=== PATIENT | male | born 1965 | race Caucasian/White ===

== ENCOUNTER 2019-05-23 17:29 | Observation (INO) | payer OTHER, SELFPAY ==
[2019-05-23 17:40] VITALS: BP 108/84; PULSE 80; RESP 14; TEMP 36.7
--- NOTE | 2019-05-23 19:40 | ED.ABDPAIN ---
HPI - Abdominal Pain <Galo Moreno DO - Last Filed: 05/23/19 22:47> General Chief Complaint: Abdominal Pain Stated Complaint: concerned about appendicitis Time Seen by Provider: 05/23/19 18:06 Source: patient Mode of arrival: Ambulatory Limitations: no limitations History of Present Illness HPI narrative: Patient is a 53-year-old male. Has been having right lower quadrant abdominal pain for the past 4-5 days. He has had similar pain off and on for the past several months. He states the pain does radiate down to the his right groin. He does feel bloated with constipation. Did take a stool softener last night. Had a bowel movement earlier this morning without any change. Went to see his primary doctor this morning. Had labs performed which shows no acute pathology. Had a ultrasound of his ab which showed probable chronic superimposed on acute appendicitis. They did recommend a CT scan. CT scan was performed which showed a enlarged appendix consistent with chronic possibly superimposed on mild acute appendicitis. There is no fluid. No fluid collection or abscess. Patient was sent to the emergency department. Related Data Allergies Allergy/AdvReac Type Severity Reaction Status Date / Time No Known Drug Allergies Allergy Verified 05/23/19 18:04 Review of Systems <DO Kavita Garrett Last Filed: 05/23/19 22:47> Constitutional Constitutional: Denies fever(s) Cardiovascular Cardiovascular: Denies chest pain and Denies dyspnea Respiratory Respiratory: Denies dyspnea Gastrointestinal Gastrointestinal: Reports abdominal pain, Reports constipation, Reports nausea and Denies vomiting Genitourinary Genitourinary: Denies dysuria Musculoskeletal Musculoskeletal: Denies myalgias and Denies arthralgias Integumentary/Breasts Skin/Breast: Denies rash Hematologic/Lymphatic Hematologic/Lymphatic: Denies easy bleeding and Denies easy bruising Patient History <DO Kavita Garrett Last Filed: 05/23/19 22:47> Medical History Healthy adult (Acute) Social History household members: spouse Smoking Status: Never smoker alcohol intake: current Smoking Status: Never smoker alcohol intake frequency: holidays/special occasions only Substance Use Type: does not use Exam <DO Kavita Garrett Last Filed: 05/23/19 22:47> Initial Vital Signs Initial Vital Signs: Vital Signs Temperature 98.0 F 05/23/19 17:40 Pulse Rate 80 05/23/19 17:40 Respiratory Rate 14 05/23/19 17:40 Blood Pressure 108/84 05/23/19 17:40 Const General: cooperative and comfortable Limitations: mental status not altered Resp Effort & Inspection: normal respiratory effort Auscultation: clear to auscultation bilaterally Cardio Rate: regular rate Rhythm: regular rhythm GI Inspection: non-distended Palpation: soft, No firm and tender (Right lower quadrant) Back/Spine/Pelvis Back: No CVA tenderness Skin Lesions: no lesions Rashes: no rashes Neuro General: alert and awake Cognition: normal cognition Speech: speech normal Extrem General: normal to inspection and capillary refill normal <Devon An MD - Last Filed: 05/23/19 20:16> Initial Vital Signs Initial Vital Signs: Vital Signs Temperature 98.0 F 05/23/19 17:40 Pulse Rate 80 05/23/19 17:40 Respiratory Rate 14 05/23/19 17:40 Blood Pressure 108/84 05/23/19 17:40 Scores <Galo Moreno DO - Last Filed: 05/23/19 22:47> GCS Dinesh coma scale eye opening: Spontaneous Dinesh coma scale verbal response: Orientated Dinesh coma scale motor response: Obey commands Dinesh coma scale total score: 15 Course <Galo Moreno DO - Last Filed: 05/23/19 22:47> Orders Ordered: Acetaminophen (Tylenol) 650 mg PO Q6HR [facility] Enoxaparin Sodium (Lovenox) 40 mg SUBCUT DAILY [facility] Sodium Chloride (Normal Saline 0.9%) 1,000 mls @ 125 mls/hr IV CONT KELLY Last Infusion: 05/23/19 21:10 Dose: 125 mls/hr Documented by: Admin: 05/23/19 20:12 Dose: 125 mls/hr Documented by: BRYON Lactated Ringer's (Lactated Ringers) 1,000 mls @ 100 mls/hr IV CONT KELLY Last Admin: 05/23/19 22:14 Dose: 100 mls/hr Documented by: KRISTA Piperacillin/Tazobactam/Dextrose (Zosyn) 3.375 gm in 50 mls @ 100 mls/hr IV Q8H KELLY Naloxone HCl (Narcan) 0.2 mg IV Q2MIN PRN PRN Reason: Opiate Reversal Ondansetron HCl (Zofran) 4 mg IV Q8HR PRN PRN Reason: Nausea And Vomiting Oxycodone HCl (Percolone) 5 mg PO Q6HR PRN PRN Reason: Pain, Moderate (4-6) Discontinued Medications Sodium Chloride (Normal Saline 0.9%) 1,000 mls @ 150 mls/hr IV CONT [facility] Last Admin: 05/23/19 21:28 Dose: Not Given Documented by: KRISTA Piperacillin/Tazobactam/Dextrose (Zosyn) 3.375 gm in 50 mls @ 100 mls/hr IV NOW ONE Stop: 05/23/19 20:09 Last Infusion: 05/23/19 21:10 Dose: 0 mls/hr Documented by: Admin: 05/23/19 20:12 Dose: 100 mls/hr Documented by: BRYON Influenza Virus Vaccine (Flu Vaccine) 0.5 ml IM .ONCE ONE Stop: 05/23/19 21:17 Last Admin: 05/23/19 22:18 Dose: 0.5 ml Documented by: KRISTA Vital Signs Vital signs: Vital Signs - 8 hr 05/23/19 17:40 Temperature 98.0 F Pulse Rate [Left] 80 Respiratory Rate 14 Blood Pressure [Left Arm] 108/84 <Devon An MD - Last Filed: 05/23/19 20:16> Orders Ordered: Acetaminophen (Tylenol) 650 mg PO Q6HR [facility] Enoxaparin Sodium (Lovenox) 40 mg SUBCUT DAILY [facility] Sodium Chloride (Normal Saline 0.9%) 1,000 mls @ 125 mls/hr IV CONT KELLY Last Infusion: 05/23/19 21:10 Dose: 125 mls/hr Documented by: Admin: 05/23/19 20:12 Dose: 125 mls/hr Documented by: BRYON Lactated Ringer's (Lactated Ringers) 1,000 mls @ 100 mls/hr IV CONT KELLY Last Admin: 05/23/19 22:14 Dose: 100 mls/hr Documented by: KRISTA Piperacillin/Tazobactam/Dextrose (Zosyn) 3.375 gm in 50 mls @ 100 mls/hr IV Q8H [facility] Naloxone HCl (Narcan) 0.2 mg IV Q2MIN PRN PRN Reason: Opiate Reversal Ondansetron HCl (Zofran) 4 mg IV Q8HR PRN PRN Reason: Nausea And Vomiting Oxycodone HCl (Percolone) 5 mg PO Q6HR PRN PRN Reason: Pain, Moderate (4-6) Discontinued Medications Sodium Chloride (Normal Saline 0.9%) 1,000 mls @ 150 mls/hr IV CONT KELLY Last Admin: 05/23/19 21:28 Dose: Not Given Documented by: KRISTA Piperacillin/Tazobactam/Dextrose (Zosyn) 3.375 gm in 50 mls @ 100 mls/hr IV NOW ONE Stop: 05/23/19 20:09 Last Infusion: 05/23/19 21:10 Dose: 0 mls/hr Documented by: Admin: 05/23/19 20:12 Dose: 100 mls/hr Documented by: BRYON Influenza Virus Vaccine (Flu Vaccine) 0.5 ml IM .ONCE ONE Stop: 05/23/19 21:17 Last Admin: 05/23/19 22:18 Dose: 0.5 ml Documented by: KRISTA Vital Signs Vital signs: Vital Signs - 8 hr 05/23/19 17:40 Temperature 98.0 F Pulse Rate [Left] 80 Respiratory Rate 14 Blood Pressure [Left Arm] 108/84 MDM - Abdominal Pain <Galo Moreno DO - Last Filed: 05/23/19 22:47> MDM Narrative Medical decision making narrative: I did discuss the case with Dr. An who is on-call for General surgery. We did review the CT scan performed earlier today off of the CT that was provided by the patient. We also reviewed the CT report. Plan we is to admit the patient for further evaluation treatment to include potential surgery for acute appendicitis. Patient was informed of his diagnosis and decision for admitting. He expressed understanding and agreement. Discharge Plan Departure Patient Disposition: Admitted as Observation Clinical Impression: Acute appendicitis Qualifiers: Acute appendicitis type: with localized peritonitis Appendicitis gangrene presence: without gangrene Appendicitis perforation presence: without perforation Appendicitis abscess presence: without abscess Qualified Code(s): K35.30 - Acute appendicitis with localized peritonitis, without perforation or gangrene Discharge Date/Time: 05/23/19 21:11 Admit Date/Time: 05/23/19 19:59 Admit Provider: Devon An
[2019-05-23] MEDS: PIPERACILLIN-TAZO 3.375 GM/50 ML FROZ.PIGGY IV (20:12)
[2019-05-23] MEDS: SODIUM CHLORIDE 0.9% 1,000 ML 125 ML IV (20:12)
--- NOTE | 2019-05-23 20:16 | PM.HP.1 ---
History of Present Illness History of Present Illness Date Patient Seen: 05/24/19 Time Patient Seen: 07:28 Chief complaint: concerned about appendicitis Narrative: Dheeraj is a 53-year-old male with no significant past medical history he has had right lower quadrant abdominal pain for the past 5 days. He had an ultrasound at an outside institution that demonstrated possible acute appendicitis followed by CT exam which demonstrated acute on chronic appendicitis without abscess. He reports actually for the past month or 2 he has had some vague abdominal pain associated with some abdominal bloating mild nausea. No prior abdominal surgery, not on anticoagulation Patient History Medical History Healthy adult (Acute) Family & Social History Safety & Behavioral: Feels Safe in Current Yes Environment Been Physically Hurt or No Threatened By a Person Tobacco & Substance use: Smoking Status Never smoker alcohol intake frequency holiday/special occasion Substance Use Type does not use Meds Home Medications and Allergies Home Medications Medication Instructions Recorded Confirmed Type No Known Home Medications 05/24/19 05/24/19 History Allergies Allergy/AdvReac Type Severity Reaction Status Date / Time No Known Drug Allergies Allergy Verified 05/23/19 18:04 Review of Systems Review of Systems Narrative: A 10 point review of systems is negative except as noted in the HPI Exam Vital Signs (past 8 hours): - 05/23/19 17:40 Temperature 98.0 F Pulse Rate [Left] 80 Respiratory Rate 14 Blood Pressure [Left Arm] 108/84 Narrative Exam Narrative: General-no acute distress, well nourished HEENT-moist mucous membranes, no scleral icterus Neck-supple, no lymphadenopathy Chest- non labored respirations, clear to auscultation bilaterally Cardiac-regular rate no peripheral edema Abdomen-soft, mildly tender right lower quadrant no peritonitis Extremities-warm, well perfused Neurological-alert and oriented, no focal deficits Assessment & Plan Assessment and plan (1) Acute appendicitis: Problem details: 53-year-old male with acute on chronic appendicitis confirmed with CT no abscess. Laparoscopic appendectomy is indicated. We discussed the technical nature of the procedure its postoperative course and associated operative risk of bleeding infection damage to surrounding structures need to conversion to open. His questions been answered will proceed to the operating room this morning. Qualifiers: Acute appendicitis type: with localized peritonitis Appendicitis abscess presence: without abscess Appendicitis gangrene presence: without gangrene Appendicitis perforation presence: without perforation Qualified Code(s): K35.30 - Acute appendicitis with localized peritonitis, without perforation or gangrene Current visit: Yes Status: Acute
[2019-05-23 20:30] VITALS: BP 137/80; PULSE 81; RESP 19; O2SAT 100
[2019-05-23 21:04] VITALS: BMI 27.1
[2019-05-23 21:05] VITALS: BP 114/74; PULSE 80; RESP 18; TEMP 37.4; O2SAT 96
--- NOTE | 2019-05-23 21:17 | PC.ADMIT ---
[address] [place] [address] Admission Note: The patient,Chema Tolliver,53 y/o, was given written information regarding hospital policies, unit procedures and contact persons. Patient's smoking status: Never smoker. Vital Signs - 8 hr 05/23/19 17:40 05/23/19 20:30 Temperature 98.0 F Pulse Rate 81 Pulse Rate [Left] 80 Respiratory Rate 14 19 Blood Pressure [Left Arm] 108/84 137/80 Pulse Oximetry 100 Patient up to AC via wheelchair. Patient A&O, calm and cooperative. Up to the bathroom couple of times d/t diarrhea. Gait steady, patient independent. Denied abd pain unless pressed on.
[2019-05-23 21:40] VITALS: O2SAT 96
[2019-05-23] MEDS: LACTATED RINGERS 1,000 ML 100 ML IV (22:14)
[2019-05-23] MEDS: INFLUENZA VACCINE 0.5 ML SYRINGE IM (22:18)
[2019-05-23 23:00] VITALS: BP 110/69; PULSE 83; RESP 16; TEMP 37.6; O2SAT 98
[2019-05-24] VITALS (18 sets, daily range): BP systolic 106–131; BP diastolic 58–89; PULSE 62–98; RESP 12–20; TEMP 36.3–37.6; O2SAT 14–100; BMI 27.1
--- NOTE | 2019-05-24 | PATH_ITS ---
[facility] Accession Number: [id number] . 01 Material submitted: . appendix - APPENDIX . 01 Clinical history: . CONCERNED ABOUT APPENDICITIS . 02 Diagnosis: Appendix, Appendectomy: Acute appendicitis with serositis. No evidence of neoplasm. MRV 05/28/2019 1059 Local . 02 Electronically signed: . Nate Wong MD, PhD, Pathologist NPI- [id number] . 01 Gross description: . Received in formalin, labeled appendix, is an intact appendix (length-7.6 cm, diameter-1.2 cm) with martinez, smooth, shiny serosa and attached mesoappendix (up to 2.7 cm in depth). The resection margin is received stapled. The lumen contains martinez-pink, solid, soft material. The wall is up to 0.5 cm thick. No nodules, masses or lesions are identified. The resection margin is inked blue. Section code: (A1) resection margin en face and two public utilities sales representative serial sections; (A2) three public utilities sales representative serial sections; (A3) one-half of the bivalved tip. ([id number]) /MRV 05/25/2019 0949 Local . 02 Pathologist provided ICD-10: K35.80 . 02 CPT . 760929 Performed at: 01 [facility] [address], [place], [place] [id number] MD Calvin Pyle MD Phone: [phone] Performed at: [address] [facility] [address] [place], [place] [id number] MD Marni Cannon MD Phone: [phone]
[2019-05-24] MEDS: PIPERACILLIN-TAZO 3.375 GM/50 ML FROZ.PIGGY IV (03:52)
[2019-05-24] MEDS: LACTATED RINGERS 1,000 ML 100 ML IV ×2 (08:06→09:37)
--- NOTE | 2019-05-24 08:50 | SUR.OPER ---
Supine on padded OR bed, head on pillow, arm padded and tucked at side, legs uncrossed, safety belt at thigh, tape over blanket over lower legs .
[2019-05-24] MEDS: BUPIVACAINE 0.25% (PF) VIAL 30 ML INJ (08:57)
--- NOTE | 2019-05-24 09:36 | PM.OP.1 ---
Operative Date/Time/Diagnoses Date of procedure: 05/24/19 Time of procedure: 09:36 Pre-op diagnosis: Acute appendicitis Post-op diagnosis: same Procedure & Clinicians Procedure: Laparoscopic appendectomy Same procedure as scheduled: Yes Indications: Acute on chronic appendicitis Surgeon: Devon An Anesthesia Type: General Operative Notes Findings: Acute on chronic appendicitis non perforated Specimen(s): other (Appendix) Estimated Blood Loss (mL): 10 Procedure in detail: Patient was brought to the operating room placed supine on the table. Bilateral lower extremity compression devices were applied. They were induced and intubated with an endotracheal tube. They received 3.375 g of Zosyn prior to skin incision. They were prepped and draped in sterile fashion. Time-out was performed to ensure the correct patient procedure necessary equipment within the operating room. The skin was infiltrated with 0.25% bupivacaine. A infraumbilical incision was made the umbilical stalk was grasped and elevated and incision was made and the abdomen was entered atraumatically. A 12 mm balloon trocar was then placed into the incision and pneumoperitoneum was established. The scope was then inspected abdomen inspected and there was no evidence of injury upon entry. Two 5 mm working ports were then placed supra pubic and in the left lower quadrant. The small bowel was then swept to the upper aspect of the abdomen. The tenie were followed to the base of the cecum where the appendix was identified. The appendix was was mobilized from its lateral attachements. It was acutely inflamed but not perforated. The appendix was grasped and a window within the mesentery was made. The appendix was then transected from the cecum using the Endo GI stapler with a blue load. Next the mesentery to the appendix was taken with the stapler using the vascular staple load. The specimen was removed using the Endo-Catch bag. The abdomen was irrigated and hemostasis was checked. I applied 2 5 mm clips to the mesenteric staple line for hemostasis. The ports were then removed under direct visualization. The umbilical fascial incision was closed with 0 Vicryl in a figure-eight fashion. The skin wounds were irrigated and closed with Monocryl followed by the application of Dermabond. Sponge instrument count at the end of the operation was correct. The patient tolerated procedure well was extubated and transferred to the postoperative care unit in stable condition Complications: none Post-operative Condition: stable Disposition: same day surgery
--- NOTE | 2019-05-24 09:46 | SUR.PHASEI ---
pt shaking but state he is not cold. pt is probably shakig from anesthesia. called Dr. Kessler for demerol order.
[2019-05-24] MEDS: MEPERIDINE 50 MG/ML INJ 25 MG IV ×2 (09:55→10:06)
[2019-05-24] MEDS: OXYCODONE/ACETAMINOPHEN 5/325 TABLET 1 TAB PO (10:12)
--- NOTE | 2019-05-24 12:26 | CM.DANOTE ---
DCP: Case received, EMR reviewed and met with patient. Spouse, Hollie, was also present at bedside. Was able to obtain baseline information regarding activity and living situation. DCP assessment completed with information currently available. Patient is a 53 year old male who admitted yesterday afternoon to the care of the hospitalist team. PCP: Dr. Garcia at [facility]. Payer: confirmed: [employer]. Patient came to the hospital via family vehicle secondary to abdominal discomfort, and concern about possible appendicitis. Patient does hold diagnosis of acute appendicitis, and has surgery this morning. Met with patient in his room after surgery. He was speaking to Dr. An, surgeon, who stated that patient should potentially be going home today. , Hollie, was also at bedside. Patient is independent, and retired active duty. Asked patient if he has a primary care provider, and confirmed that he will be seeing a new provider at the [facility], Dr. Garcia. Patient is independent. P: DCP to continue to follow. He could potentially discharge home today if medically stable. Ara Hernandez RN/Operations Mgr
--- NOTE | 2019-05-24 12:37 | PM.DS.1 ---
History of Present Illness History of Present Illness Chief complaint: concerned about appendicitis Narrative: Dheeraj is a 53-year-old male with no significant past medical history he has had right lower quadrant abdominal pain for the past 5 days. He had an ultrasound at an outside institution that demonstrated possible acute appendicitis followed by CT exam which demonstrated acute on chronic appendicitis without abscess. He reports actually for the past month or 2 he has had some vague abdominal pain associated with some abdominal bloating mild nausea. No prior abdominal surgery, not on anticoagulation Discharge Providers Provider Date of admission: 05/23/19 19:59 Discharge Date: 05/24/19 Discharge provider: Devon An MD Summary Hospital Course Discharge Diagnosis: Acute appendicitis Hospital Course: He underwent a laparoscopic appendectomy which was remarkable for acute non perforated appendicitis. Postoperative course was unremarkable. Exam Vital Signs (past 8 hours): - 05/24/19 07:30 05/24/19 07:40 05/24/19 08:08 Temperature 98 F 99.7 F H Pulse Rate 66 83 Respiratory Rate 16 20 Blood Pressure 117/69 112/71 Pulse Oximetry 100 99 99 05/24/19 09:36 05/24/19 09:41 05/24/19 09:46 Temperature 97.5 F L Pulse Rate 91 H 98 H 87 Respiratory Rate 12 16 16 Blood Pressure 131/89 116/81 116/78 Pulse Oximetry 96 96 14 L 05/24/19 09:51 05/24/19 10:01 05/24/19 10:06 Temperature 97.4 F L Pulse Rate 75 81 78 Respiratory Rate 16 12 12 Blood Pressure 122/81 123/78 118/78 Pulse Oximetry 73 L 95 93 05/24/19 10:16 05/24/19 10:25 05/24/19 10:35 Temperature Pulse Rate 76 68 76 Respiratory Rate 14 12 12 Blood Pressure 112/76 111/71 106/67 Pulse Oximetry 94 95 99 05/24/19 11:08 05/24/19 11:15 05/24/19 11:45 Temperature 98.4 F 98.6 F 98.3 F Pulse Rate 75 70 73 Respiratory Rate 16 16 16 Blood Pressure 109/59 L 114/77 116/58 L Pulse Oximetry 97 99 99 Oxygen Delivery Method Room Air Oxygen Flow Rate 1 Narrative Exam Narrative: General-no acute distress, well nourished HEENT-moist mucous membranes, no scleral icterus Neck-supple, no lymphadenopathy Chest- non labored respirations, clear to auscultation bilaterally Cardiac-regular rate no peripheral edema Abdomen-soft, incisions clean dry intact appropriately tender to palpation Extremities-warm, well perfused Neurological-alert and oriented, no focal deficits Discharge Plan Discharge Plan Patient Disposition: Home Discharge orders & Medications Prescriptions: New oxycodone 5 mg tablet 5 mg PO Q6H PRN (Reason: pain) Qty: 20 RF: 0 acetaminophen [Tylenol] 325 mg capsule 650 mg PO QID PRN (Reason: pain) Qty: 60 RF: 0 Follow up/Referrals: Devon An MD [Physician] - Diet/Activity/Treatments Diet: Regular Activity: No lifting >20 lbs x 4 weeks. Walking only for exercise for 4 weeks[address] while taking narcotics. Visit Report/Discharge Packet Instructions: DI for an Appendectomy, DI for Constipation, DI for Prescription Opioid Use, [facility]: Wound Care Quality VTE Deep Vein Thrombosis/Pulmonary Embolism Present on Admission: No
--- NOTE | 2019-05-24 15:02 | PC.NURSE ---
Discharge: Pt has been able to eat and void. Had oxycodone in pacu and reports his pain is controlled. Reviewed d/c packet, given rx, questions answered. Given back his paper work from [employer]. Unable to find his cd film. He was told to call back in a couple of days to medical records. If not he could get a copy from the doctors office. Pt d/c home via auto w/spouse.
== END 2019-05-24 15:10 | disposition home or self-care (01) ==
LOC: ED 19:41 → AC 05-24 07:04
PROVIDERS: Admitting Provider Surgery; Emergency Provider Emergency Medicine; Referring Provider Emergency Medicine; Visit Provider Surgery
PROC: 0DTJ4ZZ Resection of Appendix, Percutaneous Endoscopic Approach (ICD-10-PCS; CPT 44970; principal; 2019-05-24 08:00)
DX: K35.80 Unspecified acute appendicitis (principal); R10.31 Right lower quadrant pain; Z23 Encounter for immunization
CPT/HCPCS: 44970; 90471; 90656; 96361; 96365; 96375; 99219; 99283; 99284; G0378; J1100; J1885; J2175; J2250; J2405; J2543; J2704; J3010; Q2038